=== PATIENT | female | born 1960 | race Caucasian/White ===

== ENCOUNTER 2022-06-23 15:08 | Observation (INO) | payer OTHER ==
[2022-06-23] MEDS ORDERED: ONDANSETRON 4 MG/2 ML VIAL IVPUSH ONE (15:39)
[2022-06-23] MEDS ORDERED: ACETAMINOPHEN 1000 MG/100 ML BAG IVPB ONE (15:39)
[2022-06-23] MEDS ORDERED: SODIUM CHLORIDE 0.9% 500 ML INFUS.BAG IV ONE ×2 (15:39→16:50)
[2022-06-23] MEDS ORDERED: ACETAMINOPHEN INJECTION 100 ML IVPB ONE (15:44)
[2022-06-23] MEDS ORDERED: ONDANSETRON 4 MG/2 ML VIAL ONE (15:44)
[2022-06-23 16:15] LABS: HEMATOCRIT 35.3 % (32.4-45.2); HEMOGLOBIN 12.4 G/dL (10.7-15.3); MCH 31.8 pg (25.7-33.7); MCHC 35.2 g/dl (32.0-36.0); MEAN CELL VOLUME 90.3 fl (80-96); MEAN PLT VOLUME 9.3 fl (7.5-11.1); PLATELET COUNT 183.7 10^3/uL (134-434); RBC 3.91 10^6/uL (3.60-5.2); RDW 13.3 % (11.6-15.6); WHITE BLOOD COUNT 6.6 10^3/uL (4.0-10.8)
[2022-06-23 16:27] LABS: BILIRUBIN,TOTAL 0.4 mg/dl (0.2-1); CALCIUM 9.3 mg/dl (8.5-10); CREATININE 0.5 mg/dl (0.55-1.3); TOT PROT 6.6 g/dl (6.4-8.2)
[2022-06-23 16:30] LABS: PLATELET ESTIMATE ADEQUATE
[2022-06-23] MEDS ORDERED: LORazepam 2 MG/ML SDV VIAL IVPUSH ONE (17:57)
[2022-06-23] MEDS ORDERED: ACETAMINOPHEN 325 MG TABLET (FP) PO PRN (19:25)
[2022-06-23 20:39] LABS: CALCIUM 8.4 mg/dl (8.5-10); CREATININE 0.4 mg/dl (0.55-1.3)
[2022-06-24] MEDS ORDERED: SODIUM CHLORIDE 250 ML IV STA (00:56)
[2022-06-24] MEDS ORDERED: SODIUM CHLORIDE 1,000 ML IV SCH (01:00)
[2022-06-24 08:05] LABS: BASO % 0.3 % (0-2.0); EOS % 2.1 % (0-4.5); HEMATOCRIT 33.7 % (32.4-45.2); HEMOGLOBIN 11.2 GM/dL (10.7-15.3); LYMPH % 46.5 % (8-40); MCHC 33.3 g/dl (32.0-36.0); MEAN CELL VOLUME 90.1 fl (80-96); MEAN PLT VOLUME 10.4 fl (7.5-11.1); MONO % 10.8 % (3.8-10.2); NEUT % 40.3 % (42.8-82.8); PLATELET COUNT 186 10^3/uL (134-434); RBC 3.74 M/mm3 (3.60-5.2); RDW 12.4 % (11.6-15.6); WHITE BLOOD COUNT 4.8 K/mm3 (4.0-10.0)
[2022-06-24 08:24] LABS: BLOOD UREA NITROGEN 7.3 mg/dL (7-18); CALCIUM 8.6 mg/dL (8.5-10.1); MAGNESIUM 2.1 mg/dL (1.8-2.4)
[2022-06-24 08:27] LABS: CREATININE 0.6 mg/dL (0.55-1.3); PHOSPHOROUS 2.7 mg/dL (2.5-4.9)
[2022-06-24 09:31] VITALS: RESP 18
[2022-06-24 16:00] VITALS: BMI 18.9
[2022-06-24 16:55] LABS: CALCIUM 9.1 mg/dL (8.5-10.1)
[2022-06-24 16:59] LABS: CREATININE 0.6 mg/dL (0.55-1.3)
[2022-06-24 18:39] VITALS: BP 107/69; PULSE 61; TEMP 98.3
== END 2022-06-24 20:03 | disposition home or self-care (01) ==
LOC: FER 15:08 → J4W 19:25 → INTOOBSV 21:13 → UNDOADMOB 21:13
PROVIDERS: ADMIT Internal Medicine; ATTEND Internal Medicine
PROC: 3E033NZ Introduction of Analgesics, Hypnotics, Sedatives into Peripheral Vein, Percutaneous Approach (ICD-10-PCS; principal; 2022-06-23)
PROC: 3E033NZ Introduction of Analgesics, Hypnotics, Sedatives into Peripheral Vein, Percutaneous Approach (ICD-10-PCS; 2022-06-23)
PROC: 3E0337Z Introduction of Electrolytic and Water Balance Substance into Peripheral Vein, Percutaneous Approach (ICD-10-PCS; 2022-06-23)
DX: R55 Syncope and collapse (principal); E87.1 Hypo-osmolality and hyponatremia; E86.0 Dehydration; E11.9 Type 2 diabetes mellitus without complications; F41.9 Anxiety disorder, unspecified; R56.9 Unspecified convulsions; R53.1 Weakness; U07.1 COVID-19; Z29.8 Encounter for other specified prophylactic measures
CPT/HCPCS: 0241U-QW; 36415; 71045-TC-FY; 80048; 80053; 82436; 83735; 83930; 83935; 84100; 84133; 84300; 84484; 85025; 85027; 93005; 96361; 96374; 96375; 99285-25; G0378